=== PATIENT | female | born 1990 | race Two or more races ===

== ENCOUNTER 2023-09-24 14:41 | Outpatient (CLI) | payer OTHER | END 2023-09-24 15:19 | disposition home or self-care (01) | LOC: NST 14:41 | PROVIDERS: ATTEND Obstetrics & Gynecology | DX: Z34.83 Encounter for supervision of other normal pregnancy, third trimester (principal) ==

== ENCOUNTER 2023-09-29 17:27 | Outpatient (CLI) | payer OTHER ==
[~2023-09-29] VITALS: Ht 157.5 cm; Wt 63.0 kg
[2023-09-29] MEDS ORDERED: PRENATAL TABLE1 EAC1 PO (17:41)
[2023-09-29] MEDS ORDERED: VALTREX1000 MG PO (17:41)
== END 2023-09-30 07:47 | disposition home or self-care (01) ==
LOC: OBS/DEL 17:27
PROVIDERS: ATTEND Obstetrics & Gynecology
DX: O26.893 Other specified pregnancy related conditions, third trimester (principal); Z3A.39 39 weeks gestation of pregnancy; Z88.6 Allergy status to analgesic agent

== ENCOUNTER 2023-10-01 05:10 | Inpatient (IN) | payer OTHER ==
[~2023-10-01] VITALS: Ht 157.5 cm; Wt 3.2 kg
[~2023-10-01 05:10] MED LIST: PRENATAL TABLE1 EAC1 PO; VALTREX1000 MG PO
[2023-10-01 06:21] LABS: HEMATOCRIT 29.6 % (36.0-45.00); HEMOGLOBIN 9.9 g/dL (12.0-15.00); MEAN CELL VOLUME 80.8 fL (80.00-100.00); MEAN CORPUSCULAR HGB CONC 33.5 g/dl (32.0-36.0); PLATELET COUNT 270 K/uL (150-450); RED BLOOD COUNT 3.66 M/uL (4.00-6.00); RED CELL DISTRIBUTION WIDTH 14.8 % (11.5-14.5)
[2023-10-01 06:46] LABS: INR < 0.93; PARTIAL THROMBOPLASTIN TIME 24.6 SECONDS (22.0-34.0); PROTHROMBIN TIME 9.6 SECONDS (9.0-11.5)
[2023-10-01 07:23] LABS: ALBUMIN 2.7 gm/dL (3.4-5.0); BILIRUBIN TOTAL 0.48 mg/dL (0.3-1.2); CALCIUM 9.1 mg/dL (8.5-10.1); CREATININE SERUM 0.74 mg/dL (0.55-1.02); GFR 91.54; GLOBULINA 4.3 G/DL (2.4-3.5); POTASSIUM 4.39 mEq/L (3.5-5.1)
[2023-10-01 19:17] LABS: HEMOGLOBIN 9.2 g/dL (12.0-15.00); MEAN CELL VOLUME 79.8 fL (80.00-100.00); MEAN CORPUSCULAR HEMOGLOBIN 26.3 pg (27.00-32.0); PLATELET COUNT 247 K/uL (150-450); RED BLOOD COUNT 3.51 M/uL (4.00-6.00); RED CELL DISTRIBUTION WIDTH 14.9 % (11.5-14.5)
[2023-10-02 06:55] LABS: HEMATOCRIT 25.1 % (36.0-45.00); MEAN CELL VOLUME 80.5 fL (80.00-100.00); MEAN CORPUSCULAR HGB CONC 33.2 g/dl (32.0-36.0); PLATELET COUNT 239 K/uL (150-450); RED BLOOD COUNT 3.11 M/uL (4.00-6.00)
[2023-10-02 07:01] LABS: HEMOGLOBIN 8.3 g/dL (12.0-15.00); MEAN CORPUSCULAR HEMOGLOBIN 26.6 pg (27.00-32.0)
== END 2023-10-03 16:26 | disposition home or self-care (01) | DRG 788 ==
LOC: OB/GYN 05:10 → O/R 05:10 → LDR 05:10 → O/R 16:15 → OB/GYN 17:40
PROVIDERS: ADMIT Obstetrics & Gynecology; ATTEND Obstetrics & Gynecology
PROC: 4A1HXCZ Monitoring of Products of Conception, Cardiac Rate, External Approach (ICD-10-PCS; 2023-10-01)
PROC: 10D00Z1 Extraction of Products of Conception, Low, Open Approach (ICD-10-PCS; principal; 2023-10-01 15:00)
DX: O82 Encounter for cesarean delivery without indication (principal); O62.1 Secondary uterine inertia; Z3A.39 39 weeks gestation of pregnancy; Z37.0 Single live birth; Z20.822 Contact with and (suspected) exposure to COVID-19